=== PATIENT | male | born 1980 | race Caucasian/White ===

== ENCOUNTER 2018-01-05 09:21 | Emergency (ER) | payer OTHER ==
--- NOTE | 2018-01-05 10:47 | EDPHY ---
H & P Stated Complaint: Pain in anus x 2 days, chills, and feels feverish (unsure how high) x 1 day Time Seen by Provider: 01/05/18 09:34 HPI/ROS: CHIEF COMPLAINT: Rectal pain HISTORY OF PRESENT ILLNESS: This is a generally healthy immunocompetent 37-year -old male with 2 days rectal pressure. Yesterday he had subjective fever and chills, he does not own a thermometer. Last night he took aspirin for the pain and also some NyQuil to help him sleep. The rectal pain has been crit increasing over the past 2 days. He has had 1 hemorrhoid in his life, decades ago. No rectal trauma or intercourse. He usually has small loose stools daily. He has not had a bowel movement for 2 days. He did have to strain to move his bowels 2 days ago. Last night he used an enema and also a laxative, thinking that he might be constipated. He had no result with either of these. There was a speck of what he thinks was blood when he did the enema. Otherwise he has not seen blood in his stool. He denies abdominal pain. He has not had vomiting or diarrhea. REVIEW OF SYSTEMS: A ten point review of systems was performed and is negative with the exception of the items mentioned in the HPI. 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 He smokes an occasional cigar. He drinks alcohol socially. He does not use illicit drugs. General Appearance: Alert. Vital signs reviewed. Afebrile. Eyes: Pupils equal and round, no conjunctival injection, no discharge. Anicteric. Respiratory: Lungs are clear to auscultation; no wheezes, rales, or rhonchi. Cardiovascular: Regular rate and rhythm; no murmur, rub, or gallop. Gastrointestinal: Abdomen is soft and nontender, no masses or organomegaly, bowel sounds normal. Rectal: There is a 2 x 3 cm area of erythema adjacent to the rectal verge on the right. No visible fissure. No visible external hemorrhoids. With palpation of his buttocks and with internal rectal exam, I do not appreciate any mass or fluctuance. Skin: Warm and dry, no rashes on exposed skin, normal color. Back: Nontender to palpation over the thoracolumbar spine. No CVAT. Neurological: Alert and oriented. Moving all four extremities easily and equally. Psychiatric: Normal affect. - Personal History Current Tetanus Diphtheria and Acellular Pertussis (TDAP): Yes Tetanus Vaccine Date: within 10 years - Medical/Surgical History Hx Asthma: No Hx Chronic Respiratory Disease: No Hx Diabetes: No Hx Cardiac Disease: No Hx Renal Disease: No Hx Cirrhosis: No Hx Alcoholism: No Hx HIV/AIDS: No Hx Splenectomy or Spleen Trauma: No Other PMH: Denies - Social History Smoking Status: Former smoker Constitutional: Initial Vital Signs Temperature (C) 37.1 C 01/05/18 09:28 Heart Rate 104 H 01/05/18 09:28 Respiratory Rate 16 01/05/18 09:28 Blood Pressure 146/92 H 01/05/18 09:28 O2 Sat (%) 97 01/05/18 09:28 O2 Delivery Mode Room Air Allergies/Adverse Reactions: No Known Allergies Allergy (Verified 01/05/18 09:31) Home Medications: Medication Instructions Recorded NK [No Known Home Meds] 01/05/18 Medical Decision Making ED Course/Re-evaluation: Healthy male with 2 days of rectal pain, gradually worsening. He had subjective fever yesterday. None today. I suspect rectal or anal abscess, although I do not appreciate fluctuance on exam. I do not see a fissure, but understand that they can be difficult to visualize. His pain has been constant , not intermittent as would be expected with an anal fissure. He does think that he might be slightly constipated, but had no results with an enema and a laxative. I would not expect constipation to cause fever, which he reports. He does not appear systemically ill today. I spoke with Dr. Willam Camp, who is willing to examine the patient if he wishes to drive to [facility]. We discussed whether or not a CT scan would be helpful to assess for abscess. Antibiotics are not recommended in this setting. If there is an abscess it would likely need surgical drainage. I discussed the patient's options with him. He is concerned about the financial costs of any further evaluation or treatment. He tried to contact his insurance company but did not get through to them. At this point in time he refuses CT scan. He does not want to be seen by Dr. 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 He understands that, if this is an abscess, he will likely get worse. I have reviewed the danger signs that should prompt him to be seen again immediately. He agrees that he will be seen if he is worsening. I have encouraged him to continue to try to reach his insurance company so that he can learn about coverage in this setting. He understands that he is welcome to return at any time. Patient has been offered pain medication, but declines. He will take Tylenol and ibuprofen. He was noted to be hypertensive in the emergency department. He will have this checked by his primary care physician when he returns to [place]. He was initially tachycardic but his heart rate was within normal range when he was discharged. Differential Diagnosis: I considered a differential diagnosis that includes but is not limited to perirectal abscess, perianal abscess, anal fissure, hemorrhoids either external or internal, constipation, and rectal trauma. Departure - Departure Disposition: Home, Routine, Self-Care Clinical Impression: Rectal or anal pain Condition: Good Instructions: Rectal Pain (ED) Additional Instructions: As we discussed, I am worried that you have an anal or a rectal abscess. These need to be opened and drained in order to get better. Antibiotics alone will not make them go away. I do not feel anything that can be drained in the emergency department today. I am referring you to Dr. Willam Camp, general surgeon. I spoke with him about you today. If you are getting worse--fever, more pain, skin redness, palpable mass in the rectal region, any new or concerning symptoms--you should be seen again immediately. You can contact Dr. Willam Camp is office and arrange an appointment (they should be able to see you quickly because you were seen in the emergency department) or you can return to the emergency department. We have another emergency department affiliated with our hospital in [place]. It is called [facility]. If you required any treatment, other than what can be done in the emergency room, you would need to be seen in that hospital. Adult Pain & Fever Control: We recommend Acetaminophen (Tylenol) and Ibuprofen (Motrin,Advil) for pain and fever control. When fever is high or pain severe, both drugs can be used at the same time, but at different intervals. Please note the time differences. Your dose is: Acetaminophen [650]mg every 4 to 6 hours Ibuprofen [for]mg every [6] hours with food OR Note: do not take Acetaminophen with Hydrocodone (Vicodin, Lortab) or Oycodone (Percocet). These medications also contain Acetaminophen. No more than 3000mg of Acetaminophen should be taken in 24 hours (for an adult). I recommend that you take Tylenol and Motrin, and alternating doses, throughout the day. You might try 1 of the medicated hemorrhoid pads also. You can buy these [id number]. Referrals: TIFFANIE MONTOYA [Other] - As per Instructions Willam Camp MD [Medical Doctor] - As per Instructions
[2018-01-05 11:12] VITALS: BP 141/96
== END 2018-01-05 11:11 | disposition home or self-care (01) ==
LOC: CED 09:21
DX: K62.89 Other specified diseases of anus and rectum (principal); Z87.891 Personal history of nicotine dependence